=== PATIENT | female | born 1980 ===

== ENCOUNTER 2017-08-09 01:21 | Outpatient (CLI) | payer BC | END 2017-08-09 23:59 | disposition home or self-care (01) | LOC: DIABETIC 01:21 | PROVIDERS: ATTEND Surgery | DX: E66.01 Morbid (severe) obesity due to excess calories (principal); K21.9 Gastro-esophageal reflux disease without esophagitis; Z98.84 Bariatric surgery status | CPT/HCPCS: 97802 ==

== ENCOUNTER 2017-09-12 02:53 | Outpatient (CLI) | payer BC | END 2017-09-12 23:59 | disposition home or self-care (01) | LOC: DIABETIC 02:53 | PROVIDERS: ATTEND Surgery | DX: E66.01 Morbid (severe) obesity due to excess calories (principal); K21.9 Gastro-esophageal reflux disease without esophagitis; Z98.84 Bariatric surgery status | CPT/HCPCS: 97802 ==

== ENCOUNTER 2017-10-05 05:04 | Outpatient (CLI) | payer BC | END 2017-10-05 23:59 | disposition home or self-care (01) | LOC: DIABETIC 05:04 | PROVIDERS: ATTEND Surgery | DX: E66.01 Morbid (severe) obesity due to excess calories (principal); K21.9 Gastro-esophageal reflux disease without esophagitis; Z98.84 Bariatric surgery status | CPT/HCPCS: 97802 ==

== ENCOUNTER 2017-11-12 00:20 | Outpatient (CLI) | payer BC | END 2017-11-12 23:59 | disposition home or self-care (01) | LOC: DIABETIC 00:20 | PROVIDERS: ATTEND Surgery | DX: E66.01 Morbid (severe) obesity due to excess calories (principal); K21.9 Gastro-esophageal reflux disease without esophagitis; Z98.84 Bariatric surgery status | CPT/HCPCS: 97802 ==

== ENCOUNTER 2017-12-05 03:44 | Outpatient (CLI) | payer BC | END 2017-12-05 23:59 | disposition home or self-care (01) | LOC: DIABETIC 03:44 | PROVIDERS: ATTEND Surgery | DX: E66.01 Morbid (severe) obesity due to excess calories (principal); Z98.84 Bariatric surgery status | CPT/HCPCS: 97802 ==